=== PATIENT | female | born 1930 | race Caucasian/White ===

== ENCOUNTER 2017-10-09 18:33 | Emergency (ER) | payer MEDICARE, BC ==
[2017-10-09] MEDS ORDERED: Metoprolol Tartrate 25 MG Tab PO ONE (18:55)
--- NOTE | 2017-10-09 19:36 | EDM.PDOC ---
ED HPI GENERAL MEDICAL PROBLEM - General Chief Complaint: General Stated Complaint: numbness to face, weak, elevated bp Time Seen by Provider: 10/09/17 19:01 Source of Information: Reports: Patient History Limitations: Reports: No Limitations - History of Present Illness INITIAL COMMENTS - FREE TEXT/NARRATIVE: Patient noted right sided numbness near lips approximately 1700 this evening while she was doing puzzle at [employer]. She found that she was unable to get up on her own from the table. Does not mention any specific one sided weakness that she recalls. Staff helped her to her room. Once there, she quickly felt like her old self and symptoms resolved. She is brought to the ER by daughter-in -law. Continues to have no complaint. Denies any recent changes or illnesses. No falls. No medication or supplement changes. Usually uses walker to get around. Has not had problems like this in past. No history of TIA or stroke. Says she has had negative carotid US studies in the past (several years ago). No SOB/chest complaints. HEENT negative. Denies GI//CV changes also. - Related Data Allergies Allergy/AdvReac Type Severity Reaction Status Date / Time cefprozil [From Cefzil] Allergy Cannot Verified 10/09/17 18:37 Remember codeine Allergy Cannot Verified 10/09/17 18:37 Remember Penicillins Allergy Cannot Verified 10/09/17 18:37 Remember [id number] Reductase Allergy Cannot Verified 10/09/17 18:37 Inhibitor Remember Sulfa (Sulfonamide Allergy Cannot Verified 10/09/17 18:37 Antibiotics) Remember tramadol Allergy Cannot Verified 10/09/17 18:37 Remember Home Meds: Home Meds Acetaminophen [Tylenol Arthritis] 650 mg PO Q4HR PRN 10/09/17 [History] Aspirin [Halfprin] 81 mg PO ASDIRECTED 10/09/17 [History] Calcium Carbonate [Calcium] 600 mg PO BID 10/09/17 [History] Cholecalciferol (Vitamin D3) [Vitamin D3] 1,000 unit PO BEDTIME 10/09/17 [ History] Colesevelam HCl [Welchol] 625 mg PO BID 10/09/17 [History] Diltiazem HCl [Cardizem Cd] 360 mg PO DAILY 10/09/17 [History] Fluticasone Propionate [Flonase] 0 gm NASBOTH BID PRN 10/09/17 [History] Metoprolol Succinate 25 mg PO BID 10/09/17 [History] Nystatin [Nystatin Crm] 30 gm TOP BID PRN 10/09/17 [History] [place]-3S/DHA/Epa/Fish Oil [Fish Oil [place]-3 Softgel] 1 each PO DAILY 10/09/17 [ History] Omeprazole 40 mg PO BEDTIME 10/09/17 [History] Potassium Chloride [Klor-Con M20] 20 meq PO BEDTIME 10/09/17 [History] Valsartan [Diovan] 160 mg PO DAILY 10/09/17 [History] Past Medical History HEENT History: Reports: Cataract, Hard of Hearing, Impaired Vision Cardiovascular History: Reports: Heart Murmur, Hypertension Gastrointestinal History: Reports: GERD Musculoskeletal History: Reports: Arthritis, Back Pain, Chronic - Past Surgical History HEENT Surgical History: Reports: Cataract Surgery Social & Family History - Tobacco Use Smoking Status *Q: Former Smoker Years of Tobacco use: 5 Used Tobacco, but Quit: Yes Month Tobacco Last Used: 1953 Second Hand Smoke Exposure: No - Caffeine Use Caffeine Use: Reports: Coffee Other Caffeine Use: 1 cup in am - Recreational Drug Use Recreational Drug Use: No ED ROS GENERAL - Review of Systems Review Of Systems: ROS reveals no pertinent complaints other than HPI. ED EXAM, GENERAL - Physical Exam Exam: See Below Exam Limited By: No Limitations General Appearance: Alert, WD/WN, No Apparent Distress, Other (very pleasant) Eye Exam: Bilateral Eye: EOMI, PERRL Ears: Normal External Exam, Normal Canal Nose: Normal Inspection Throat/Mouth: Normal Inspection, Normal Lips, Normal Voice, No Airway Compromise Head: Atraumatic, Normocephalic Neck: Normal Inspection, Supple, Non-Tender, Full Range of Motion. No: Carotid Bruit, Lymphadenopathy (L), Lymphadenopathy (R) Respiratory/Chest: No Respiratory Distress, Lungs Clear, Normal Breath Sounds, No Accessory Muscle Use, Chest Non-Tender Cardiovascular: Normal Peripheral Pulses, Regular Rate, Rhythm, No Edema, No Murmur Peripheral Pulses: 2+: Radial (L), Radial (R) GI/Abdominal: Normal Bowel Sounds, Soft, Non-Tender, No Distention, No Mass (Female) Exam: Deferred Rectal (Female) Exam: Deferred Back Exam: Normal Inspection Extremities: Normal Inspection, Normal Range of Motion, Non-Tender, No Pedal Edema, Normal Capillary Refill Neurological: Alert, Oriented, CN II-XII Intact, Normal Cognition, Normal Gait, Normal Reflexes, No Motor/Sensory Deficits Psychiatric: Normal Affect, Normal Mood Skin Exam: Warm, Dry, Intact, Normal Color, No Rash Course - Vital Signs Last Recorded V/S: Last Vital Signs Temp 36.8 C 10/09/17 18:56 Pulse 70 10/09/17 19:46 Resp 18 10/09/17 18:56 BP 160/62 H 10/09/17 20:29 Pulse Ox 94 L 10/09/17 18:56 - Orders/Labs/Meds Orders: Active Orders 24 hr Category Date Time Status Head wo Cont [CT] Stat Exams 10/09/17 18:50 Taken Labs: Laboratory Tests 10/09/17 10/09/17 10/09/17 Range/Units 19:44 19:44 19:44 WBC 7.7 (4.0-10.2) K/uL RBC 4.71 (3.77-5.09) M/uL Hgb 14.3 (11.7-15.5) g/dL Hct 42.7 (34.0-46.0) % MCV 90.7 (84.0-98.0) fL MCH 30.4 (28.2-33.3) pg MCHC 33.5 (31.7-36.0) g/dL RDW 13.6 (11.2-14.1) % Plt Count 509 H (150-350) K/uL Neut % (Auto) 80.5 H (45.0-80.0) % Lymph % (Auto) 9.3 L (10.0-50.0) % [place] % (Auto) 8.6 (2.0-14.0) % Eos % (Auto) 0.8 (0.0-5.0) % Baso % (Auto) 0.8 (0.0-2.0) % Neut # (Auto) 6.21 (1.40-7.00) K/uL Lymph # (Auto) 0.72 (0.50-3.50) K/uL [place] # (Auto) 0.66 (0.00-1.00) K/uL Eos # (Auto) 0.06 (0.00-0.50) K/uL Baso # (Auto) 0.06 (0.00-0.20) K/uL Sodium 131 L (136-145) mmol/L Potassium 4.2 (3.5-5.1) mmol/L Chloride 96 L (98-107) mmol/L Carbon Dioxide 26.3 (21.0-32.0) mmol/L BUN 19 H (7-18) mg/dL Creatinine 0.70 (0.51-1.17) mg/dL Est Cr Clr Drug Dosing 45.95 mL/min Estimated GFR (MDRD) > 60 mL/min Glucose 152 H (74-106) mg/dL Calcium 9.8 (8.5-10.1) mg/dL Total Bilirubin 0.4 (0.2-1.0) mg/dL AST 19 (15-37) U/L ALT 18 (12-78) U/L Alkaline Phosphatase 97 (46-116) IU/L Total Protein 8.4 H (6.4-8.2) g/dL Albumin 4.5 (3.4-5.0) g/dL Specimen Type Urinvoid Urine Color Yellow Urine Appearance Clear Urine pH 5.5 (5.0-9.0) Ur Specific [place] 1.025 (1.005-1.030) Urine Protein 30 H (NEGATIVE) mg/dL Urine Glucose (UA) Negative (NEGATIVE) mg/dL Urine Ketones Negative (NEGATIVE) mg/dL Urine Occult Blood Negative (NEGATIVE) Urine Nitrite Negative (NEGATIVE) Urine Bilirubin Negative (NEGATIVE) Urine Urobilinogen 0.2 (0.2-1.0) E.U./dL Ur Leukocyte Esterase Negative (NEGATIVE) Urine RBC 0-5 /HPF Urine WBC 0-5 /HPF Ur Epithelial Cells Few /LPF Urine Bacteria Few (NONE TO FEW) /HPF Urinalysis Comment Meds: Medications Discontinued Medications Generic Name Dose Route Start Last Admin Trade Name Freq PRN Reason Stop Dose Admin Metoprolol Tartrate 25 mg 10/09/17 18:55 10/09/17 19:46 Lopressor PO 10/09/17 18:56 25 mg ONETIME ONE Administration - Radiology Interpretation CT Results Date: 10/09/17 CT Results Time: 19:15 - Re-Assessments/Exams Free Text/Narrative Re-Assessment/Exam: 10/09/17 19:39 Patient has remained symptom-free since arrival. Neurologically intact. Unremarkable exam. CT showed no acute findings per radiology. Noted to have some generalized atrophy, old suspected strokes, and calcification in vessels/carotids. Patient says she usually has a somewhat lower BP than what was noted at the [facility] and here in ER. Single dose Metoprolol given. Patient observed. Labs requested. Free Text/Narrative Re-Assessment/Exam: 10/09/17 20:58 BP steadily improved thoughout stay. Patient remained comfortable and without complaint. CBC showed elevated platelets. Chem showed mild decrease in Na and Cl. Glu 152. UA normal Cannot rule out TIA as cause of patient's complaint. Cannot rule out contribution of elevated BP to original complaint. Discussed plan with patient and her [id number]. Recommend follow up tomorrow with [facility] to arrange follow up BP checks as well as planning as needed to address elevated platelets and other (milder) lab abnormalities as needed. May need to arrange new carotid US as well as possible MRI of brain. Numerous precautions reviewed prior to discharge. She is to follow up otherwise as needed and may certainly return to ER as needed. Departure - Departure Time of Disposition: 20:41 Disposition: Home, Self-Care 01 Condition: Good Clinical Impression: Right facial numbness, Hyperglycemia, unspecified, Elevated platelet count, Neurological deficit, transient Hypertension Qualifiers: Hypertension type: unspecified Qualified Code(s): I10 - Essential (primary) hypertension - Discharge Information Instructions: Transient Ischemic Attack, [id number] Referrals: Cee Kearney MD [Primary Care Provider] - Forms: ED Department Discharge Additional Instructions: Follow up tomorrow at [facility]. Call and tell them you were seen in the ER tonight and may have had a TIA. Additionally, you need to have serial BP checks set up to see what your average BPs are throughout the day. Your blood pressure was elevated tonight when you first arrived and may have contributed to the symptoms you had earlier while doing the puzzle. you may need new carotid ultrasound. You should also discuss with them that your platelets were quite elevated tonight. That needs to be rechecked. Your blood sugar was a bit elevated too, and your sodium level was a bit below normal. You can follow up for all of these with Josee and formulate a plan. Follow up as needed otherwise if you are having problems. - My Orders Last 24 Hours: My Active Orders 10/09/17 18:50 Head wo Cont [CT] Stat - Assessment/Plan Last 24 Hours: My Active Orders 10/09/17 18:50 Head wo Cont [CT] Stat
[2017-10-09 20:18] LABS: CHLORIDE,CL 96 mmol/L (98-107); SODIUM,NA 131 mmol/L (136-145)
== END 2017-10-09 21:05 | disposition home or self-care (01) ==
LOC: LL.ED 18:33
DX: I10 Essential (primary) hypertension (principal); D47.3 Essential (hemorrhagic) thrombocythemia; R29.818 Other symptoms and signs involving the nervous system; R73.9 Hyperglycemia, unspecified; R20.0 Anesthesia of skin; Z88.5 Allergy status to narcotic agent; Z88.0 Allergy status to penicillin; Z88.2 Allergy status to sulfonamides; Z79.82 Long term (current) use of aspirin; Z79.899 Other long term (current) drug therapy; Z87.891 Personal history of nicotine dependence
CPT/HCPCS: 36415; 70450; 80053; 81001; 85025; 99284; A9270